=== PATIENT | male | born 1990 | race Caucasian/White ===

== ENCOUNTER 2018-10-04 17:14 | Emergency (ER) | payer MEDICAID ==
[~2018-10-04] VITALS: Ht 185.4 cm; Wt 120.5 kg
[2018-10-04] MEDS ORDERED: OLAN5TAB40 PO (17:51)
[2018-10-04] MEDS ORDERED: MIRT15 PO (17:51)
[2018-10-04] MEDS ORDERED: BENZ1TAB10 PO (17:51)
[2018-10-04] MEDS ORDERED: LORazepam 2 MG TABLET PO ONE (19:00)
[2018-10-04 19:04] LABS: BASOPHILS % (AUTO) 0.6 % (0.0-2.0); EOSINOPHILS % (AUTO) 0.7 % (1.0-6.0); HEMATOCRIT 43.8 % (41-53); HEMOGLOBIN 14.9 g/dL (13.5-17.5); LYMPHOCYTES # (AUTO) 1.4 K/uL (1.0-4.8); LYMPHOCYTES % (AUTO) 15.7 % (22.0-44.0); MEAN CORPUSCULAR VOLUME 85 fL (80-100); MONOCYTES # (AUTO) 0.6 K/uL (0.1-1.0); MONOCYTES % (AUTO) 7.4 % (2.0-9.0); NEUTROPHILS # (AUTO) 6.6 K/uL (1.8-7.7); NEUTROPHILS % (AUTO) 75.6 % (40.0-70.0); PLATELET COUNT (AUTO) 209 K/uL (150-450); RED BLOOD CELL COUNT(AUTO) 5.14 MIL/uL (4.50-5.90); RED CELL DISTRIBUTION WIDTH 14.7 % (11.5-14.5)
[2018-10-04 19:16] LABS: ANION GAP 11 mmol/L (8-16); CALCIUM, TOTAL 8.7 mg/dL (8.8-10.5); CARBON DIOXIDE 27 mmol/L (22-29); CHLORIDE 94 mmol/L (98-107); GLOMERULAR FILTR. RATE CALC > 60 mL/min (>60); GLUCOSE,RANDOM 88 mg/dL (70-110); POTASSIUM 3.5 mmol/L (3.5-5.1); SODIUM SERUM 132 mmol/L (136-145); UREA NITROGEN, BLOOD 9 mg/dL (7-18)
[2018-10-04 19:20] LABS: AMPHET/METH SCREEN,URINE NEGATIVE (NEGATIVE); BARBITURATE SCREEN, URINE NEGATIVE (NEGATIVE); BENZODIAZEPINES SCREEN,URINE NEGATIVE (NEGATIVE); CANNABINOID SCREEN,URINE NEGATIVE (NEGATIVE); COCAINE SCREEN,URINE NEGATIVE (NEGATIVE); METHADONE SCREEN, URINE NEGATIVE (NEGATIVE); OPIATE SCREEN,URINE NEGATIVE (NEGATIVE)
[2018-10-04 19:21] LABS: ALANINE AMINOTRANSFERASE 45 U/L (12-78); ALBUMIN 3.8 g/dL (3.4-5.0); ALKALINE PHOSPHATASE 100 U/L (46-116); ASPARTATE AMINOTRANSFERASE 41 U/L (15-37); BILIRUBIN,TOTAL 0.6 mg/dL (0.1-1.0); TOTAL PROTEIN, SERUM 7.6 g/dL (6.4-8.2)
[2018-10-04 19:22] LABS: PHENCYCLIDINE SCREEN,URINE NEGATIVE (NEGATIVE)
[2018-10-04 21:10] VITALS: BP 135/72
== END 2018-10-04 21:33 | disposition home or self-care (01) ==
LOC: EMS 17:18
DX: F41.9 Anxiety disorder, unspecified (principal); F25.9 Schizoaffective disorder, unspecified; F17.210 Nicotine dependence, cigarettes, uncomplicated; Z88.5 Allergy status to narcotic agent; Z79.899 Other long term (current) drug therapy
CPT/HCPCS: 36415; 80053; 80307; 85025; 93005; 99284; 99406; G0480

== ENCOUNTER 2019-01-04 20:12 | Emergency (ER) | payer MEDICAID ==
[~2019-01-04] VITALS: Ht 185.4 cm; Wt 117.3 kg
[~2019-01-04 20:12] MED LIST: BENZ1TAB10 PO; MIRT15 PO; OLAN5TAB40 PO
[2019-01-04] MEDS ORDERED: PALI39DI IM (20:18)
[2019-01-04] MEDS ORDERED: BUSP15 PO (20:18)
[2019-01-04 20:53] LABS: RAPID GROUP A STREP NEGATIVE (NEGATIVE)
[2019-01-04 21:11] LABS: INFLUENZA TYPE A NEGATIVE FOR TYPE A (NEGATIVE); INFLUENZA TYPE B NEGATIVE FOR TYPE B (NEGATIVE)
[2019-01-04 22:00] VITALS: BP 138/75
== END 2019-01-04 22:12 | disposition home or self-care (01) ==
LOC: EMS 20:14
DX: B34.9 Viral infection, unspecified (principal); F41.9 Anxiety disorder, unspecified; F20.9 Schizophrenia, unspecified; F17.210 Nicotine dependence, cigarettes, uncomplicated; Z88.5 Allergy status to narcotic agent; Z88.8 Allergy status to other drugs, medicaments and biological substances
CPT/HCPCS: 87430; 87804

== ENCOUNTER 2023-01-10 11:58 | Emergency (ER) | payer MEDICAID ==
[~2023-01-10] VITALS: Ht 182.9 cm; Wt 90.9 kg
[~2023-01-10 11:58] MED LIST changes: -BENZ1TAB10 PO; +BENZ1TAB84 PO; +BUSP15 PO; +MIRT-89 PO; -MIRT15 PO; -OLAN5TAB40 PO; +OLAN5TAB94 PO; +PALI39DI IM
[2023-01-10 12:44] VITALS: TEMP 98
[2023-01-10 13:00] VITALS: BP 136/80; PULSE 77; RESP 16
[2023-01-10 13:04] LABS: BASOPHILS % (AUTO) 0.3 % (0.0-2.0); EOSINOPHILS % (AUTO) 0.9 % (1.0-6.0); HEMOGLOBIN 13.8 g/dL (13.5-17.5); LYMPHOCYTES # (AUTO) 0.9 K/uL (1.0-4.8); LYMPHOCYTES % (AUTO) 17.5 % (22.0-44.0); MEAN CORPUSCULAR HEMOGLOBIN 28.8 pg (26.0-34.0); MEAN CORPUSCULAR HGB CONC 32.8 G/dL (31.0-37.0); MEAN CORPUSCULAR VOLUME 88 fL (80-100); MONOCYTES # (AUTO) 0.3 K/uL (0.1-1.0); MONOCYTES % (AUTO) 5.3 % (2.0-9.0); PLATELET COUNT (AUTO) 186 K/uL (150-450); RED CELL DISTRIBUTION WIDTH 16.2 % (11.5-14.5); WHITE BLOOD COUNT (AUTO) 5.2 K/uL (4.5-11.0)
[2023-01-10 13:07] LABS: PH,URINE DRUG SCREEN 7.5 (5.0-8.0)
[2023-01-10 13:14] LABS: ANION GAP 4 mmol/L (8-16); B-TYPE NATRIURETIC PEPTIDE 35 pg/mL (0-100); CALCIUM, TOTAL 8.5 mg/dL (8.8-10.5); CARBON DIOXIDE 33 mmol/L (22-29); CHLORIDE 98 mmol/L (98-107); CREATININE 0.96 mg/dL (0.60-1.30); GLOMERULAR FILTR. RATE CALC > 60 mL/min (>60); GLUCOSE,RANDOM 119 mg/dL (70-110); POTASSIUM 4.2 mmol/L (3.5-5.1); SODIUM SERUM 135 mmol/L (136-145); UREA NITROGEN, BLOOD 10 mg/dL (7-18)
[2023-01-10 13:17] LABS: TROPONIN I-HIGH SENSITIVITY 5 ng/L (<76)
[2023-01-10 13:17] LABS: ALCOHOL, URINE DRUG SCREEN NEGATIVE (NEGATIVE); AMPHET/METH SCREEN,URINE NEGATIVE (NEGATIVE); BARBITURATE SCREEN, URINE NEGATIVE (NEGATIVE); BENZODIAZEPINES SCREEN,URINE NEGATIVE (NEGATIVE); CANNABINOID SCREEN,URINE POSITIVE (NEGATIVE); COCAINE SCREEN,URINE NEGATIVE (NEGATIVE); METHADONE SCREEN, URINE NEGATIVE (NEGATIVE); OPIATE SCREEN,URINE NEGATIVE (NEGATIVE); PHENCYCLIDINE SCREEN,URINE NEGATIVE (NEGATIVE)
[2023-01-10 13:19] LABS: ALCOHOL, BLOOD (SERUM) < 3 mg/dL (0-10)
[2023-01-10 13:35] LABS: ALANINE AMINOTRANSFERASE 18 U/L (12-78); ALBUMIN 3.7 g/dL (3.4-5.0); ALKALINE PHOSPHATASE 124 U/L (46-116); ASPARTATE AMINOTRANSFERASE 23 U/L (15-37); BILIRUBIN,TOTAL 0.2 mg/dL (0.1-1.0); CREATINE KINASE, TOTAL ONLY 384 U/L (39-308)
== END 2023-01-10 14:08 | disposition home or self-care (01) ==
LOC: EMS 12:00
DX: F41.9 Anxiety disorder, unspecified (principal); F20.9 Schizophrenia, unspecified; F17.210 Nicotine dependence, cigarettes, uncomplicated; Z88.8 Allergy status to other drugs, medicaments and biological substances
CPT/HCPCS: 99285; 71045; 80053; 82550; 83880; 84484; 85025; 36415; 93005; 80307; G0480

== ENCOUNTER 2025-01-24 14:17 | Inpatient (IN) | payer MEDICAID ==
[~2025-01-24] VITALS: Ht 185.4 cm; Wt 76.2 kg
[2025-01-24 08:28] VITALS: BP 134/72; PULSE 74; RESP 18; TEMP 98.6; O2SAT 99
[~2025-01-24 14:17] MED LIST changes: +BENZ-247 PO; -BENZ1TAB84 PO
[2025-01-24 20:22] VITALS: BP 114/70; PULSE 74; RESP 17; TEMP 97.8; O2SAT 97
[2025-01-24 23:50] VITALS: BP 133/76; PULSE 68; RESP 18; TEMP 98.4; O2SAT 98
[2025-01-25 00:28] VITALS: BP 133/76; PULSE 68; RESP 18; TEMP 98.1; O2SAT 98
[2025-01-25 08:12] LABS: PLATELET COUNT (AUTO) 188 K/uL (150-450); RED BLOOD CELL COUNT(AUTO) 4.46 MIL/uL (4.50-5.90); RED CELL DISTRIBUTION WIDTH 15.6 % (11.5-14.5); WHITE BLOOD COUNT (AUTO) 3.9 K/uL (4.5-11.0)
[2025-01-25 08:35] LABS: ASPARTATE AMINOTRANSFERASE 36 U/L (15-37); CALCIUM, TOTAL 8.2 mg/dL (8.8-10.5); CHOL/HDL RATIO 3.4 (4.2-7.3); CREATININE 0.50 mg/dL (0.60-1.30); GLOMERULAR FILTR. RATE CALC > 60 mL/min (>60); GLUCOSE,RANDOM 90 mg/dL (70-110); LDL CHOL (CALC.) 73 mg/dL (0-130); SODIUM SERUM 140 mmol/L (136-145); TOTAL PROTEIN, SERUM 6.2 g/dL (6.4-8.2); UREA NITROGEN, BLOOD 20 mg/dL (7-18)
[2025-01-25 08:39] VITALS: BP 116/62; PULSE 69; RESP 17; TEMP 97.9; O2SAT 98
[2025-01-25] MEDS ORDERED: PETROLATUM,WHITE 28 GM JELLY TP PRN (09:45)
[2025-01-25] MEDS ORDERED: ONDANSETRON 4 MG TABLET PO PRN (09:45)
[2025-01-25] MEDS ORDERED: DOCUSATE SODIUM 100 MG CAPSULE PO PRN (09:45)
[2025-01-25] MEDS ORDERED: OMEPRAZOLE 20 MG CAPSULE PO PRN (09:45)
[2025-01-25] MEDS ORDERED: MAGNESIUM HYDROXIDE SUSPENSION 30 ML UDCUP PO PRN (09:45)
[2025-01-25] MEDS ORDERED: MAG HYDROX/ALUMINUM HYD/SIMETH ES 30 ML SUSPENSION UDCUP PO PRN (09:45)
[2025-01-25] MEDS ORDERED: LOPERAMIDE HCL 2 MG CAPSULE PO PRN (09:45)
[2025-01-25] MEDS ORDERED: ALBUTEROL SULFATE HFA 90 MCG/PUFF 8 GM INHALER IH PRN (09:45)
[2025-01-25] MEDS ORDERED: IBUPROFEN 600 MG TABLET PO PRN (09:45)
[2025-01-25] MEDS ORDERED: BACITRACIN 28 GM OINTMENT TP PRN (09:45)
[2025-01-25] MEDS ORDERED: BENZOCAINE/MENTHOL [CEPACOL] LOZENGE PO PRN (09:45)
[2025-01-25] MEDS: NICOTINE POLACRILEX 4 MG LOZENGE PO PRN (18:02)
[2025-01-25 20:20] VITALS: BP 112/70; PULSE 65; RESP 17; TEMP 98; O2SAT 96
[2025-01-25] MEDS: OLANZapine 7.5 MG TABLET PO SCH (20:50)
[2025-01-26 08:57] VITALS: BP 115/60; PULSE 60; RESP 16; TEMP 97.1; O2SAT 100
[2025-01-26 10:15] LABS: APPEARANCE,URINE CLEAR (CLEAR); GLUCOSE, URINE (UA) NEGATIVE (NEGATIVE); LEUKOCYTE ESTERASE ,URINE NEGATIVE (NEGATIVE); NITRATE,URINE NEGATIVE (NEGATIVE); OCCULT BLOOD,URINE NEGATIVE (NEGATIVE); PH,URINE DRUG SCREEN 5.5 (5.0-8.0); SPECIFIC GRAVITIY, URINE 1.008 (1.003-1.030)
[2025-01-26 10:33] LABS: ALCOHOL, URINE DRUG SCREEN NEGATIVE (NEGATIVE); AMPHET/METH SCREEN,URINE NEGATIVE (NEGATIVE); BARBITURATE SCREEN, URINE NEGATIVE (NEGATIVE); CANNABINOID SCREEN,URINE NEGATIVE (NEGATIVE); COCAINE SCREEN,URINE NEGATIVE (NEGATIVE); METHADONE SCREEN, URINE NEGATIVE (NEGATIVE)
[2025-01-26 20:40] VITALS: BP 117/82; PULSE 65; RESP 17; TEMP 98.2; O2SAT 99
[2025-01-27 08:59] VITALS: BP 113/82; PULSE 60; RESP 16; TEMP 97.5; O2SAT 100
[2025-01-27 20:14] VITALS: BP 131/85; PULSE 61; RESP 16; TEMP 98.1; O2SAT 100
[2025-01-28 08:15] VITALS: BP 110/60; PULSE 60; RESP 17; TEMP 97.7; O2SAT 98
[2025-01-28 20:20] VITALS: BP 120/74; PULSE 71; RESP 16; TEMP 97.7; O2SAT 100
[2025-01-28] MEDS: ZOLPIDEM TARTRATE 10 MG TABLET PO PRN (21:23)
[2025-01-29 08:13] VITALS: BP 125/72; PULSE 74; RESP 17; TEMP 97.2; O2SAT 96
[2025-01-29] MEDS: NICOTINE POLACRILEX 4 MG LOZENGE PO PRN (13:57)
[2025-01-29 20:24] VITALS: BP 142/75; PULSE 66; RESP 17; TEMP 98.3; O2SAT 96
[2025-01-30 20:11] VITALS: BP 123/76; PULSE 57; RESP 16; TEMP 98; O2SAT 98
[2025-01-31 08:11] VITALS: BP 122/71; PULSE 86; RESP 18; TEMP 97.8; O2SAT 98
[2025-01-31 12:25] VITALS: BP 138/80; RESP 18
[2025-01-31 20:22] VITALS: BP 131/82; PULSE 79; RESP 16; TEMP 97.8; O2SAT 98
[2025-02-01 08:11] VITALS: BP 125/78; PULSE 91; RESP 16; TEMP 97.4; O2SAT 100
[2025-02-01 20:44] VITALS: BP 123/76; PULSE 81; RESP 18; TEMP 97.7; O2SAT 98
[2025-02-02 08:16] VITALS: BP 117/67; PULSE 65; RESP 16; TEMP 98.4; O2SAT 100
[2025-02-02 20:17] VITALS: BP 100/66; PULSE 60; RESP 16; TEMP 98; O2SAT 96
[2025-02-03 08:32] VITALS: BP 107/62; PULSE 62; RESP 15; TEMP 97.4; O2SAT 100
[2025-02-03 20:19] VITALS: BP 116/71; PULSE 61; RESP 16; TEMP 97.2; O2SAT 100
[2025-02-04 08:33] VITALS: BP 113/64; PULSE 80; RESP 16; TEMP 98; O2SAT 100
[2025-02-04 20:13] VITALS: BP 122/79; PULSE 66; RESP 18; TEMP 98.5; O2SAT 100
[2025-02-05 08:46] VITALS: BP 126/70; PULSE 60; RESP 16; TEMP 98.6; O2SAT 100
[2025-02-05] MEDS: GABAPENTIN 300 MG CAPSULE PO SCH (12:28)
[2025-02-05 20:20] VITALS: BP 124/75; PULSE 71; RESP 16; TEMP 98.7; O2SAT 100
[2025-02-06 08:05] VITALS: BP 135/87; PULSE 84; RESP 18; TEMP 97.7; O2SAT 100
[2025-02-06 21:43] VITALS: BP 119/92; PULSE 83; RESP 17; TEMP 98.3; O2SAT 100
[2025-02-07 08:42] VITALS: RESP 17
[2025-02-07] MEDS: ACETAMINOPHEN 325 MG TABLET PO PRN (08:42)
[2025-02-07 08:44] VITALS: BP 135/82; PULSE 95; RESP 17; TEMP 98.4; O2SAT 96
[2025-02-07 09:42] VITALS: RESP 17
[2025-02-07 21:39] VITALS: BP 140/90; PULSE 75; RESP 18; TEMP 98.6
[2025-02-08 08:22] VITALS: BP 125/71; PULSE 88; RESP 18; TEMP 97.5; O2SAT 100
[2025-02-08 20:43] VITALS: BP 126/80; PULSE 62; RESP 18; TEMP 97.3; O2SAT 100
[2025-02-09 08:24] VITALS: RESP 15
[2025-02-09 20:34] VITALS: RESP 18
[2025-02-10 08:41] VITALS: BP 124/80; PULSE 69; RESP 17; TEMP 97.5; O2SAT 100
[2025-02-10 20:20] VITALS: BP 118/89; PULSE 87; RESP 16; TEMP 98.6; O2SAT 100
[2025-02-11 08:10] VITALS: BP 113/72; PULSE 87; RESP 15; TEMP 97.5; O2SAT 99
[2025-02-11 20:12] VITALS: RESP 17
[2025-02-12 08:24] VITALS: BP 114/75; PULSE 75; RESP 18; TEMP 97.5; O2SAT 97
[2025-02-12 20:16] VITALS: BP 119/81; PULSE 75; RESP 18; TEMP 97.3; O2SAT 97
[2025-02-13 08:09] VITALS: BP 112/64; PULSE 79; RESP 16; TEMP 97.6; O2SAT 98
[2025-02-13 20:32] VITALS: BP 124/76; PULSE 60; RESP 16; TEMP 98.2; O2SAT 100
[2025-02-14 14:17] VITALS: BP 123/77; PULSE 60; RESP 16; TEMP 98.2; O2SAT 100
[2025-02-14 22:00] VITALS: BP 121/78; PULSE 68; RESP 18; TEMP 98; O2SAT 97
[2025-02-15 13:58] VITALS: RESP 17
[2025-02-15 20:26] VITALS: BP 111/76; PULSE 65; RESP 16; TEMP 98.6; O2SAT 98
[2025-02-16 08:46] VITALS: BP 106/81; PULSE 80; RESP 17; TEMP 97.9; O2SAT 98
[2025-02-16 22:27] VITALS: BP 123/77; PULSE 69; RESP 16; TEMP 98.3; O2SAT 98
[2025-02-17 09:40] VITALS: BP 114/71; PULSE 77; RESP 16; TEMP 98.6; O2SAT 99
[2025-02-17] MEDS: TUBERCULIN, PURIFIED PROTEIN DERIVATIVE 5 TU/0.1 ML SYRINGE ID ONE (09:48)
[2025-02-17] MEDS ORDERED: RISP3TAB77 PO ×2 (13:57→13:58)
[2025-02-17] MEDS ORDERED: OLAN7.5T22 PO (13:59)
[2025-02-17] MEDS ORDERED: GABA-1181 PO (14:02)
== END 2025-02-17 15:25 | disposition home or self-care (01) | DRG 750 ==
LOC: B3A 17:38
PROVIDERS: ADMIT Psychiatry & Neurology Psychiatry; ATTEND Psychiatry & Neurology Psychiatry
DX: F20.9 Schizophrenia, unspecified (principal); F12.10 Cannabis abuse, uncomplicated; F41.9 Anxiety disorder, unspecified; F17.200 Nicotine dependence, unspecified, uncomplicated; G47.00 Insomnia, unspecified; K59.00 Constipation, unspecified; Z71.6 Tobacco abuse counseling; Z63.4 Disappearance and death of family member
CPT/HCPCS: 80053; 80061; 80307; 81003; 83036; 84439; 84443; 85025; 86592